=== PATIENT | female | born 1955 | race Caucasian/White ===

== ENCOUNTER 2017-10-22 18:41 | Emergency (ER) | payer OTHER, SELFPAY ==
--- NOTE | 2017-10-22 18:41 | DT_ITS ---
This patient was seen during an EMR downtime October 15, 2017 - October 22, 2017. This patient may have a combination of paper and electronic documentation or all paper documentation. All documentation is viewable within the e-chart portion of [employer] for each patient visit.
[2017-10-22 18:42] VITALS: BP 117/69; PULSE 64; RESP 16; TEMP 36.6; O2SAT 97; BMI 38.0
[2017-10-22 19:03] VITALS: BP 135/77; PULSE 67; RESP 18; O2SAT 96
--- NOTE | 2017-10-22 19:05 | EKG12_ITS ---
Test Reason : SYNCOPE Blood Pressure : / mmHG Vent. Rate : 059 BPM Atrial Rate : 059 BPM P-R Int : 198 ms QRS Dur : 076 ms QT Int : 438 ms P-R-T Axes : 068 021 048 degrees QTc Int : 433 ms Sinus bradycardia Otherwise normal ECG Confirmed by TERESA RAMOS, RUFUS ([id number]), graphics editor JERMAINE MEEK ([id number]) on 10/24/2017 5:17:41 PM Referred By: DR SIMS Confirmed By:RUFUS MOORE MD
--- NOTE | 2017-10-22 19:05 | CT_ITS ---
STUDY: CT BRAIN WITHOUT CONTRAST REASON FOR EXAM: Female, 62 years old. Syncopal episode RADIATION DOSAGE (If Supplied By Facility): CTDIvol = ( 44.99 ) mGy, DLP = ( 829.85 ) mGycm TECHNIQUE: Transaxial CT imaging of the brain was performed without administration of intravenous contrast material. Individualized dose optimization techniques were used for this CT. COMPARISON: None. FINDINGS: Normal soft tissue structures. Normal calvarium. Normal size ventricles and extra-axial spaces for the patient's age. Normal white matter tracts of the cerebral hemispheres. Normal basal ganglia and thalami. Normal brainstem. Normal cerebellum. There is no intracranial hemorrhage. There are no findings of an acute ischemic infarction. Normal visualized paranasal sinuses. CT/Brain/Head without Contrast IMPRESSION: Normal unenhanced CT scan of the brain. Electronically Signed: Yovanny Hermosillo MD at 19:57 EDT , Service support ,
--- NOTE | 2017-10-22 19:09 | ED.RN ---
NO OLD EKG'S IN MUSE
[2017-10-22] MEDS: 0.9% Normal Saline 1,000 ML 150 ML IV (19:16)
[2017-10-22 19:26] LABS: Red Blood Cells-Urine 0 SEEN /hpf (0-5)
[2017-10-22] MEDS: LORazepam 2 MG/ML Syringe 0.5 MG IV (19:26)
[2017-10-22 19:41] LABS: Absolute Lymphocyte Count 2.89 X10^3/ul (0.83-4.51); Absolute Neutrophil Count 4.3 X10^3/uL (2.0-7.7); Basophil# 0.03 X10^3/uL; Basophil% 0.4 % (0-1); Eosinophil# 0.16 X10^3/uL; Hematocrit 37.6 % (37-47); Hemoglobin 13.5 g/dl (12.0-15.0); Lymphocyte # 2.89 X10^3/ul (4.0); Lymphocyte % 35.9 % (19-41); Mean Corp Hgb Conc 35.9 g/gl (32-36); Mean Corpuscular Hgb 32.3 pg (27.0-32.0); Mean Platelet Vol. 11.4 fl (6.2-12.0); Monocyte# 0.65 X10^3/uL; Monocyte% 8.1 % (0-10); Neutrophil # 4.31 X10^3/uL (2.7-7.7); Neutrophil % 53.5 % (47-70); Platelet Count 194 K/mm3 (150-450); RBC Distribution Width CV 12.6 % (11.6-14.6); RBC Distribution Width SD 40.9 fl (35.1-43.9); Red Blood Count 4.18 M/mm3 (4.2-5.4); White Blood Count 8.1 K/mm3 (4.4-11.0)
[2017-10-22 19:45] LABS: Anion Gap 5 (5-15); BUN 18 mg/dL (7-18); BUN/Creat Ratio 28.3 RATIO (10-20); Calcium,Total 8.6 mg/dL (8.5-10.1); Chloride 108 mmol/L (98-107); Color, Urine Yellow (Yellow); Creatinine, Serum 0.64 mg/dL (0.55-1.02); EST Glomerular Filtration Rate 101 mL/min (>60); Est Glom Filt Rate - Afr Amer 122 mL/min (>60); Glucose 97 mg/dL (74-106); Glucose, Dipstick 100 mg/dl (Normal); Ketone-Dipstick Negative (Negative); Leukocyte Esterase-Dipstick Negative /ul (Negative); Nitrite-Dipstick Negative (Negative); Occult Blood-Urine Negative /ul (Negative); Protein-Dipstick 15 mg/dl (Negative); Sodium Level 141 mmol/L (136-145); Specific Gravity, Urine 1.025 (1.002-1.030); Urine Bilirubin Dipstick Negative (Negative); Urine Clarity Sl. Cloudy (Clear); Urine Urobilinogen Normal (Normal)
[2017-10-22 19:49] LABS: POSITIVE COUNT NO; POSITIVE DIFFERENTIAL NO; POSITIVE MORPHOLOGY NO
[2017-10-22 19:52] LABS: Squamous Epithelial Cells - UA 0-5 SEEN /hpf (5-10)
[2017-10-22 19:53] LABS: Bacteria RARE /hpf (None Seen); Mucous, Urine RARE /hpf (<or=2+)
[2017-10-22 19:54] LABS: White Blood Cells 0-5 SEEN /hpf (0-5)
--- NOTE | 2017-10-22 20:37 | ED.VISSUMM ---
- ER Visit Summary Date of Service: 10/22/17 Chief Complaint: Syncope History of Present Illness: The patient is a 62 F who reportedly had a brief episode of vertigo yesterday morning. She had vertigo again this morning upon waking that was more persistent. She does report nausea and vomiting. states that she had a brief syncopal episode at dinner tonight. She did not have seizure activity. He did not have to shake her to wake her up. It lasted only a few seconds. At this time patient is states that she feels tired. She states that she has not been sleeping well she has been getting up to urinate frequently. She complains of a history of a irregular heartbeat secondary to prior drug abuse. She denies this is ever been worked up. Physical Examination: Vital signs are unremarkable. Patient sitting upright in bed no acute distress. Head neck examination is normal. Heart is regular rate and rhythm. Lung sounds are clear. Abdomen is soft and nontender. Neuro exam is normal. Her NIH score is 0. Test Results: CT head is unremarkable. EKG is sinus bradycardia at 59 bpm. No sign of acute ischemia. CBC and chemistry studies are normal. Urinalysis normal. Troponin negative. Emergency Department Course and Treatment: She was given IV fluids along with small dose of IV Ativan to help with vertigo. On repeat evaluation she does feel improved. I discussed with her admission for cardiac monitoring with her syncopal episode and further workup of her vertigo. I did discuss with her that this can be signs of a stroke. At this time she is refusing admission. She states she will return if her symptoms worsen. She understands the risks. Treatment Plan: [] Disposition: Discharge Impression: 1. Vertigo 2. Reported syncope This note was generated with [employer] software. It may contain incorrect words, spelling, and punctuation that were not noted in review of the chart prior to signing ED Disposition - Plan for ED Patient: Chief Complaint: Syncope Referrals: Garrett Sauceda MD [Primary Care Provider] -
[2017-10-22 20:39] VITALS: BP 116/62; PULSE 66; RESP 16; O2SAT 96
--- NOTE | 2017-10-22 20:39 | ED.DEP ---
ED Disposition - Plan for ED Patient: Disposition: Home or Assisted Living Chief Complaint: Syncope Instructions: ED Fainting Unkn Cause, ED Vertigo Unspecified Referrals: Garrett Sauceda MD [Primary Care Provider] - 3-5 Days
== END 2017-10-22 20:47 | disposition home or self-care (01) ==
PROVIDERS: Emergency Provider Emergency Medicine; Family Provider Family Medicine; PCP Family Medicine
DX: R42 Dizziness and giddiness (principal); R55 Syncope and collapse; R00.1 Bradycardia, unspecified
CPT/HCPCS: 70450; 80048; 81001; 84484; 85025; 93005; 96361; 96374; 99285; J7030

== ENCOUNTER → 2019-12-11 15:10 | Outpatient (CLI) | payer OTHER, SELFPAY ==
--- NOTE | 2019-12-11 15:17 | RAD_ITS ---
STUDY: X-RAY - LEFT KNEE REASON FOR EXAM: Female, 64 years old. LEFT KNEE PAIN. NO KNOWN INJURY. TECHNIQUE: 4 view(s) of the knee. COMPARISON: None. FINDINGS: Normal visualized distal femur. Normal visualized proximal tibia and fibula. Normal proximal tibiofibular articulation. There is mild joint space narrowing of the medial knee compartment. Normal lateral femorotibial compartment. Normal patellofemoral articulation. The soft tissue structures are unremarkable. RAD/Knee 4 or More Views IMPRESSION: Joint space narrowing of the medial knee compartment. There is no evidence of fracture, dislocation, free intra-articular calcifications, or suprapatellar effusion. Electronically Signed: Jorge Mays MD at 17:37 EDT , Service support ,
--- NOTE | 2019-12-11 15:17 | RAD_ITS ---
STUDY: X-RAY - RIGHT FOOT CLINICAL: Female, 64 years old. PAIN AND SWELLING IN RIGHT FOOT. PATIENT STATES TWISTED RIGHT FOOT A COUPLE OF DAYS AGO. TECHNIQUE: 3 view(s) of the foot. COMPARISON: None. FINDINGS: There is a small plantar aspect calcaneal spur. Normal visualized subtalar, talonavicular, calcaneocuboid, tarsal and tarsometatarsal articulations. Normal metatarsi. Normal metatarsophalangeal joint of the great toe. Normal tibial and fibular sesamoid bones. Normal interphalangeal joint of the great toe. Normal phalanges of the great toe. Normal second through fifth metatarsophalangeal joints. Normal interphalangeal joints and phalanges of the lesser toes. The soft tissue structures are unremarkable. RAD/Foot min 3 Views IMPRESSION: Small plantar aspect calcaneal spur. There is no evidence of fracture or dislocation. Electronically Signed: Jorge Mays MD at 17:40 EDT , Service support ,
== END ==
PROVIDERS: PCP Family Medicine; Referring Provider Family Medicine; Visit Provider Family Medicine
DX: M79.671 Pain in right foot (principal); M25.562 Pain in left knee
CPT/HCPCS: 73564; 73630

== ENCOUNTER 2020-03-26 18:18 | Emergency (ER) | payer OTHER, SELFPAY ==
[2020-03-26 18:19] VITALS: BP 132/87; PULSE 76; RESP 15; TEMP 36.2; O2SAT 98; BMI 34.7
--- NOTE | 2020-03-26 19:04 | ED.DCSUM_ITS ---
History of Present Illness Chief Complaint: Lower Extremity Injury Informant: Patient Narrative: Patient states that 2 weeks ago she fell while in [place]. She went to the emergency room had a hematoma and contusion diagnosis of the right knee. She states x-rays were negative. She tells me that she came home and was going to follow-up with her doctor but they do not see [employer]. She called [facility] and she told me that she was advised that she should be seen in the emergenc y department before going to them. She notes some increased warmth of the anterior aspect of the knee. No calf swelling or pain. No swelling of the feet. Past Medical History - Allergies and Home Meds Allergies/Adverse Reactions: Allergies OPIATES Adverse Reaction (Uncoded 03/26/20 18:22) Itching Primary Care Physician: Garrett Sauceda MD [Primary Care Provider] - Past Medical History: None Surgical History: noncontributory Smoking Status: Former smoker Drugs: None Review of Systems General: Denies: Chills, Fever, Sweats Eyes: Denies: Visual changes - bilaterally, Diplopia ENT: Denies: Rhinorrhea, Sore throat Cardiovascular: Denies: Chest pain, Palpitations Respiratory: Denies: Dyspnea, Cough, Dyspnea on exertion Gastrointestinal: Denies: Abdominal pain, Nausea, Vomiting, Diarrhea, Melena, Hematochezia Genitourinary: Denies: Dysuria, Hematuria, Frequency Musculoskeletal: Reports: Extremity Pain. Denies: Back pain Skin: Denies: Rash, Wounds Neurological: Denies: Headache, Weakness, Numbness Physical Exam Vital Signs/Narrative: Vital Signs Temp Pulse Resp BP Pulse Ox 03/26/20 18:19 97.2 F L 76 15 132/87 H 98 Inital Vital Signs reviewed: Yes General: Well nourished, Well developed, No Acute Distress Head: Normocephalic, Atraumatic Eyes: Perrl, EOMI ENT: Moist mucous membranes, No rhinorrhea Neck: Supple, Nontender Cardiovascular: Regular rate, Regular rhythm, No murmurs Respiratory: No distress, CTA bilaterally, Chest nontender Abdomen: Soft, Nontender, Nondistended, Normal bowel sounds Back: Nontender, Normal Inspection Extremities: Nontender - There is no overlying knee erythema. There is a scab on the anterior knee that looks well-healed., No edema, - - There is purplish to green ecchymosis of the anterior right knee and leg. There is no calf tenderne ss. Skin: Normal color, No rash Neurological: Alert, Oriented x3, Cranial nerves II-XII grossly intact, Normal Strength, Normal Sensation Psychological: Normal affect, Normal Mood Diagnostic/Tx/Re-eval - Medical Decision Making Bedside ultrasound shows a fluid collection is most likely the bursa. There appears to be some debris floating in the sac. 1% lidocaine was used to anesthetize the area after washing the skin with chlorhexidine. Using the standard sterile technique an 18-gauge needle was used to aspirate the bursa. Dark blood with clots was removed. Therefore I believe this to be a traumatic bursitis in the body is most likely breaking down the clots resulted in the increased warmth. I do not think at this time there is evidence of an infected bursa. Patient will be discharged home. ED Disposition - Plan for ED Patient: Disposition: Against Medical Advice Diagnosis: Traumatic bursitis Instructions: ED Bursitis Referrals: Garrett Sauceda MD [Primary Care Provider] - As Needed Additional Instructions: Follow-up with Workmen's Comp. as scheduled.
[2020-03-26 19:30] VITALS: RESP 16
== END 2020-03-26 19:31 | disposition left against medical advice (07) ==
PROVIDERS: Emergency Provider Emergency Medicine; PCP Family Medicine
DX: M71.561 Other bursitis, not elsewhere classified, right knee (principal); Z88.5 Allergy status to narcotic agent
CPT/HCPCS: 20610; 99282

== ENCOUNTER → 2020-11-18 10:17 | Outpatient (CLI) | payer OTHER, SELFPAY ==
--- NOTE | 2020-11-18 10:20 | BI_ITS ---
MAMMOGRAPHY - BILATERAL SCREENING REASON FOR EXAM: Female, 65 years old. Routine annual screening examination. PERTINENT HISTORY: Non-contributory. Occasional left breast tenderness. Prior left stereotactic breast biopsy. TECHNIQUE: Digital bilateral breast corrina (3D mammographic acquisition) in the CC and MLO projections. 2-D mediolateral oblique (MLO) and craniocaudad (CC) views of both breasts were obtained. CAD: Full Field Digital Mammography with Computer Added Detection was performed. COMPARISON: Comparison is made with prior outside examination dated 12/12/2012. FINDINGS: Breast Composition: The breasts are extremely dense, which lowers the sensitivity of mammography. There are no dominant masses or suspicious calcifications. A patient clip marker is seen in the central retroareolar region of the left breast. Stable small benign-appearing bilateral axillary lymph nodes. No other significant abnormalities are identified. There has been no significant change since the prior study. BI/SCREENING MAMM (CAD), BILAT IMPRESSION: Stable bilateral screening mammogram. Yearly follow-up mammogram recommended. (A) ASSESSMENT CATEGORY: BIRADS Category 2: Benign. A letter regarding these results will be sent to the patient by the facility within 30 days. Approximately 10% of breast cancers are not detected by mammography. A normal mammogram should not delay biopsy of a clinically suspicious abnormality. [id number] Electronically Signed: Ernesto Khan MD at 8:58 EDT , Service support ,
== END ==
PROVIDERS: PCP Family Medicine; Referring Provider Family Medicine; Visit Provider Family Medicine
DX: Z12.31 Encounter for screening mammogram for malignant neoplasm of breast (principal)
CPT/HCPCS: 77067